=== PATIENT | female | born 1970 | race Caucasian/White ===

== ENCOUNTER → 2017-02-19 | Outpatient (CLI) | payer MEDICAID ==
[~2017-02-19] MED LIST: BACTRIM DS 8001 TA1 PO; CARAFATE1 GM PO; CITALOPRAM HYDR40 MG PO; ETODOLAC400 MG PO; FLEXERIL10 MG PO; HYDROCODONE-APA1 TA2 PO; MAGNESIUM OXID400 M1 PO; NAPROXEN SODIU500 MG PO; NORCO 325 MG-51 TAB PO; PANTOPRAZOLE SO40 M1 PO; PHENERGAN 25MG.25 M1 PO; PHENTERMINE HCL30 MG PO; PORTIA-28 30 MC1 TAB PO; SIMVASTATIN20 MG PO; ZOFRAN ODT4 MG PO; [UNRECOGNIZED DRUG - OTHER] PO
[2017-02-19 12:08] LABS: LYMPH # 1.4 K/mm3 (0.7-4.5); LYMPH % 23.3 % (10-50.0)
[2017-02-19 12:22] LABS: HEMOGLOBIN 15.7 g/dL (12.2-16.2)
[2017-02-19 13:28] LABS: BUN 10 mg/dL (7-18); GFR (ESTIMATED) 90 ML/MIN (59-)
[2017-02-21 05:39] LABS: Folate (Folic Acid) 12.5 ng/mL (>3.0)
[2017-02-21 06:40] LABS: Vitamin D, 25-Hydroxy 38.6 ng/mL (30.0-100.0)
[2017-02-21 14:38] LABS: Vit. B1, Whole Blood 140.2 nmol/L (66.5-200.0)
== END ==
LOC: LAB 11:07
PROVIDERS: Physician Assistant
DX: K21.9 Gastro-esophageal reflux disease without esophagitis (principal); I10 Essential (primary) hypertension; E78.5 Hyperlipidemia, unspecified; Z98.84 Bariatric surgery status

== ENCOUNTER → 2017-02-27 | Outpatient (CLI) | payer MEDICAID ==
--- NOTE | 2017-03-04 11:16 | RADIOLOGY REPORT PS360 ---
DIG MAMM-DX UNI A/VWS-LT W/CAD COMPARISON: 01/30/2017, 09/05/2014 INDICATION: Follow-up abnormal mammogram ORDERING PHYSICIAN: GERALD WARD APRN PATIENT AGE: 46 years TECHNIQUE: Spot compression views and straight ML view FINDINGS: The asymmetric density in the central aspect of the left breast does appear to compress out as fibroglandular tissue. Part of this density noted on the screening study is felt to be related to an overlying benign-appearing nodule which has been present dating back to 09/13/2014. No malignant appearing mass or malignant appearing microcalcification is evident. IMPRESSION: No evidence of malignancy. Probably benign findings BI-RADS CATEGORY: 3_Probably Benign-Short Term F/U RECOMMENDED FOLLOWUP: 6 month mammographic follow-up of the left breast (A letter has been sent to the patient regarding results of the study.)
== END ==
LOC: RAD 02-20 13:45
DX: R92.8 Other abnormal and inconclusive findings on diagnostic imaging of breast (principal); N63.20 Unspecified lump in the left breast, unspecified quadrant
CPT/HCPCS: G0206-LT